=== PATIENT | male | born 1985 | race Caucasian/White ===

== ENCOUNTER 2017-01-03 12:28 | Emergency (ER) | payer SELFPAY ==
[2017-01-03 12:45] VITALS: BP 129/81
--- NOTE | 2017-01-03 13:11 | UC ---
Hip/Pelvis Pain - HPI Summary HPI Summary: 31 year old with hip pain that is resolved and he desires to return to work at this time. No acute concerns. no hip pain or restrictions. He states he had the leg give out when he stepped the wrong way at work and had numbness in the leg right sided and had to place pressure on the other leg, lost balance and had work place injury. Now he feels 100% better and desires to return to work. No further episodes. Been active at home picking up kids, wrestling and being fully active and feels great. - History Of Current Complaint Chief Complaint: UCGeneralIllness Stated Complaint: HIP PAIN Time Seen by Provider: 01/03/17 13:05 Hx Obtained From: Patient Onset/Duration: Sudden Onset Severity Initially: Moderate Severity Currently: Mild Character Of Pain: Stiffness Aggravating Factor(s): Movement Alleviating Factor(s): Rest Associated Signs And Symptoms: Positive: Negative - Allergies/Home Medications Allergies/Adverse Reactions: Allergies Allergy/AdvReac Type Severity Reaction Status Date / Time No Known Allergies Allergy Verified 01/03/17 12:38 Home Medications: Home Medications Ibuprofen TAB* [Motrin TAB* 800 MG] 800 mg PO ONCE PRN 01/03/17 [History Confirmed 01/03/17] PMH/Surg Hx/FS Hx/Imm Hx Previously Healthy: Yes - Surgical History Surgical History: Yes Surgery Procedure, Year, and Place: T & A at age 16 - Family History Known Family History: Positive: None - Social History Occupation: Employed Full-time Lives: With Family Alcohol Use: None Substance Use Type: None Smoking Status (MU): Never Smoked Tobacco When Did the Patient Quit Smoking/Using Tobacco: 5 years ago - Immunization History Most Recent Influenza Vaccination: never Most Recent Tetanus Shot: refused Most Recent Pneumonia Vaccination: refused Review of Systems Musculoskeletal: Arthralgia Neurological: Paresthesia All Other Systems Reviewed And Are Negative: Yes Physical Exam Triage Information Reviewed: Yes Appearance: Well-Appearing, No Pain Distress, Well-Nourished Vital Signs: Initial Vital Signs Temp 97.6 F 01/03/17 12:39 Pulse 83 01/03/17 12:39 Resp 16 01/03/17 12:39 BP 129/81 01/03/17 12:39 Pulse Ox 98 01/03/17 12:39 Vital Signs Reviewed: Yes Eye Exam: Normal ENT Exam: Normal Dental Exam: Normal Neck exam: Normal Neck: Positive: 1 Respiratory Exam: Normal Cardiovascular Exam: Normal Abdominal Exam: Normal Musculoskeletal Exam: Normal Musculoskeletal: Positive: Strength Intact, ROM Intact, No Edema, Other: - FROM. Strength 5/5. No hip or back pain to palpation. Sensation normal . Neurological Exam: Normal Psychological Exam: Normal Skin Exam: Normal Skin: Positive: Other - superficial abrasion left flank healing well with some ecchymosis about 4x4 abrasion with some mild bruising inferior to it Hip Injury Course/Dx - Course Course Of Treatment: Discussed his Sx and they are resolved . Discussed this happening in the future and he states he has had this in the past [place] the farm like a stinger , he states he in 100 %, normal PE, he is aware if Sx return at all to go to Orth oand stop working and he agrees - Differential Dx/Diagnosis Differential Diagnosis/HQI/PQRI: Sprain, Strain Provider Diagnoses: Hip strain Discharge - Discharge Plan Condition: Good Disposition: HOME Patient Education Materials: Hip Pain (ED) Forms: *Work Release Referrals: Corona Caballero MD [Medical Doctor] - If Needed (Ortho Referral if needed ) Beth De Guzman [Primary Care Provider] - 4 Days (If needed )
== END 2017-01-03 13:20 | disposition home or self-care (01) ==
LOC: UCCORT 12:28
DX: S76.011A Strain of muscle, fascia and tendon of right hip, initial encounter (principal); X58.XXXA Exposure to other specified factors, initial encounter; Y92.89 Other specified places as the place of occurrence of the external cause; Y99.8 Other external cause status; Z87.891 Personal history of nicotine dependence
CPT/HCPCS: 99211; G0463

== ENCOUNTER 2017-03-05 14:14 | Emergency (ER) | payer SELFPAY ==
--- NOTE | 2017-03-05 14:36 | UC ---
Back Pain HPI - HPI Summary HPI Summary: 31 year old male presents with complains of lower back pain after picking up a heavy barrel. - History of Current Complaint Stated Complaint: LOWER BACK PAIN WC Time Seen by Provider: 03/05/17 14:35 Hx Obtained From: Patient Timing: Constant Severity Initially: Moderate Severity Currently: Moderate Pain Scale Used: 0-10 Numeric - 5 Character: Sharp Aggravating Factor(s): Movement - Allergies/Home Medications Allergies/Adverse Reactions: Allergies Allergy/AdvReac Type Severity Reaction Status Date / Time No Known Allergies Allergy Verified 03/05/17 14:28 Home Medications: Home Medications Allopurinol TAB* [Zyloprim 100 MG TAB*] 100 mg PO DAILY 03/05/17 [History Confirmed 03/05/17] Lisinopril TAB* [Prinivil TAB*] 5 mg PO DAILY 03/05/17 [History Confirmed ] glipiZIDE TAB* [Glucotrol TAB*] 5 mg PO DAILY 03/05/17 [History Confirmed ] metFORMIN* [Glucophage 500 MG TAB *] 500 mg PO DAILY 03/05/17 [History Confirmed 03/05/17] PMH/Surg Hx/FS Hx/Imm Hx Previously Healthy: Yes - Surgical History Surgical History: Yes Surgery Procedure, Year, and Place: T & A at age 16 - Family History Known Family History: Positive: None - Social History Alcohol Use: None Substance Use Type: None Smoking Status (MU): Never Smoked Tobacco When Did the Patient Quit Smoking/Using Tobacco: 5 years ago - Immunization History Most Recent Influenza Vaccination: never Most Recent Tetanus Shot: refused Most Recent Pneumonia Vaccination: refused Review of Systems Constitutional: Negative Skin: Negative Eyes: Negative ENT: Negative Respiratory: Negative Cardiovascular: Negative Gastrointestinal: Negative Genitourinary: Negative Motor: Negative Neurovascular: Negative Musculoskeletal: Decreased ROM, Myalgia Neurological: Negative Psychological: Negative All Other Systems Reviewed And Are Negative: Yes Physical Exam Triage Information Reviewed: Yes Vital Signs Reviewed: Yes Eye Exam: Normal ENT Exam: Normal Dental Exam: Normal Neck exam: Normal Neck: Positive: 1 Respiratory Exam: Normal Cardiovascular Exam: Normal Abdominal Exam: Normal Musculoskeletal: Positive: Strength Limited @, ROM Limited @, Other: - lower righty sided back pain Neurological Exam: Normal Psychological Exam: Normal Skin Exam: Normal Back Pain Course/Dx - Differential Dx/Diagnosis Provider Diagnoses: lower rigth sided back pain Discharge - Discharge Plan Condition: Stable Disposition: HOME Prescriptions: Meloxicam [Mobic] 7.5 mg PO BID PC #30 tab Methocarbamol TAB* [Robaxin 500 MG TAB*] 500 mg PO TID PRN #30 tab PRN Reason: Spasms - Back Patient Education Materials: Acute Low Back Pain (ED) Forms: *Work Release Referrals: Corona Caballero MD [Medical Doctor] - [facility] [place] Physical therapy,PT [Medical Doctor] - Beth De Guzman [Primary Care Provider] -
[2017-03-05 14:37] VITALS: BP 136/83
--- NOTE | 2017-03-05 15:30 | RAD ---
HISTORY: Low back pain COMPARISONS: None VIEWS: 5 , Frontal, lateral, coned-down lateral sacral, and bilateral oblique views of the lumbar spine. FINDINGS: ALIGNMENT: The alignment is normal. VERTEBRAL BODIES: The vertebral body heights are normal. The interpedicular distances are normal. There is minimal anterolateral marginal osteophyte formation with several Schmorl's nodes. JOINTS: There is mild diffuse facet hypertrophy change most pronounced at L4-L5 and L5-S1 INTERVERTEBRAL DISCS: There is diffuse loss of intervertebral disc height. SOFT TISSUE: Unremarkable. OTHER: The pelvis is unremarkable. The lung bases are clear. IMPRESSION: MILD DEGENERATIVE DISC DISEASE AND OSTEOARTHRITIS.
== END 2017-03-05 15:49 | disposition home or self-care (01) ==
LOC: UCCORT 14:14
DX: M54.5 Low back pain (principal); M51.37 Other intervertebral disc degeneration, lumbosacral region; M47.817 Spondylosis without myelopathy or radiculopathy, lumbosacral region; Z87.891 Personal history of nicotine dependence
CPT/HCPCS: 72110; 99212; G0463

== ENCOUNTER 2018-07-13 08:03 | Emergency (ER) | payer OTHER ==
[2018-07-13 08:23] VITALS: BP 139/92
--- NOTE | 2018-07-13 08:30 | UC ---
General HPI - HPI Summary HPI Summary: last friday or friday, pt fell while bear hugging a large pipe at work. he injury his R chest and it took his breath away. he has ongoing pain and "it pops". notes R chest is swollen. - History of Current Complaint Chief Complaint: UCChestPain Stated Complaint: WC-RT SHOULDER,CHEST INJURY Time Seen by Provider: 07/13/18 08:16 Hx Obtained From: Patient Onset/Duration: Sudden Onset Timing: Constant Pain Intensity: 3 Aggravating: movement and deep breaths Associated Signs & Symptoms: Negative: Abdominal Pain, Fever, Hematemesis, SOB - Allergy/Home Medications Allergies/Adverse Reactions: Allergies Allergy/AdvReac Type Severity Reaction Status Date / Time No Known Allergies Allergy Verified 07/13/18 08:18 Home Medications: Home Medications NK [No Home Medications Reported] 07/13/18 [History Confirmed 07/13/18] PMH/Surg Hx/FS Hx/Imm Hx - Additional Past Medical History Additional PMH: DVT Endocrine History: Diabetes - Surgical History Surgical History: Yes Surgery Procedure, Year, and Place: L3-L5 Discectomy, 2018, [place]; T&A, 2000 , [place] - Family History Known Family History: Positive: None - Social History Occupation: Employed Full-time Alcohol Use: Rare Substance Use Type: None Smoking Status (MU): Heavy Every Day Tobacco Smoker Amount Used/How Often: 1 PPD Length of Time of Smoking/Using Tobacco: On and Off Since Age 18 When Did the Patient Quit Smoking/Using Tobacco: 5 years ago - Immunization History Most Recent Influenza Vaccination: never Most Recent Tetanus Shot: refused Most Recent Pneumonia Vaccination: refused Review of Systems All Other Systems Reviewed And Are Negative: Yes Respiratory: Positive: Cough, Other - R chest wall pain. Negative: Shortness Of Breath Physical Exam Triage Information Reviewed: Yes Appearance: Well-Appearing Vital Signs: Initial Vital Signs Temp 97.7 F 07/13/18 08:15 Pulse 77 07/13/18 08:15 Resp 16 07/13/18 08:15 BP 139/92 07/13/18 08:15 Pulse Ox 100 07/13/18 08:15 Vital Signs Reviewed: Yes Eyes: Positive: Conjunctiva Clear ENT: Positive: Normal ENT inspection Neck: Positive: Supple, Nontender, No Lymphadenopathy Respiratory: Positive: Normal breath sounds, No respiratory distress, Other: - Bare from waist up: R anterior chest with mild swelling and tenderness at the costochondal margin but no crepitation of instability. Cardiovascular: Positive: RRR, No Murmur Abdomen Description: Positive: Nontender, No Organomegaly, Soft. Negative: Distended, Guarding Bowel Sounds: Positive: Present Musculoskeletal: Positive: ROM Intact Neurological: Positive: Alert Psychological: Positive: Age Appropriate Behavior Skin Exam: Normal Skin: Negative: Rashes Diagnostics - Radiology No standard instances Radiology Interpretation Completed By: Radiologist - single view chest/L ribs= No traumatic thoracic injury evident. Negative exam. IMPRESSION: Unremarkable sternum. Course/Dx - Differential Dx - Multi-Symptom Differential Diagnoses: Other - no ptx,fx's or infiltrate on cxr. exam c/w a costpchondral injury and possible separation. - Diagnoses Provider Diagnosis: Costochondral pain Discharge - Sign-Out/Discharge Documenting (check all that apply): Patient Departure All imaging exams completed and their final reports reviewed: Yes - Discharge Plan Condition: Stable Disposition: HOME Patient Education Materials: Chest Wall Pain (ED) Forms: *Work Release Referrals: Juan Pardo MD [Medical Doctor] - 5 Days Additional Instructions: TAKE YOUR NAPROXEN TWICE DAILY X 5 DAYS. - Billing Disposition and Condition Condition: STABLE Disposition: Home - Attestation Statements Provider Attestation: I was available for consult. This patient was seen by the TOYA. The patient was not presented to, seen by, or examined by me. -Ljj Addendum entered and electronically signed by Dhara Taylor PA 07/13/18 09:41 : Addendum Addendum: Pt has the NSAID prescription at home. He will use that and declined a new prescription.
== END 2018-07-13 09:41 | disposition home or self-care (01) ==
LOC: UCCORT 08:03
DX: R07.1 Chest pain on breathing (principal); R07.89 Other chest pain; R22.2 Localized swelling, mass and lump, trunk; R05 Cough; F17.210 Nicotine dependence, cigarettes, uncomplicated
CPT/HCPCS: 71120; 99211; G0463